=== PATIENT | female | born 1955 | race Caucasian/White ===

== ENCOUNTER 2018-04-22 08:48 | Observation (INO) ==
[2018-04-22] MEDS ORDERED: Ondansetron 4 MG/2 ML VIAL IVP ONE ×2 (09:05→16:17)
[2018-04-22] MEDS ORDERED: *HR* FentaNYL (PF) 100 MCG/2 ML VIAL IVP ONE ×2 (09:05→11:09)
[2018-04-22] MEDS ORDERED: 0.9 % Sodium Chloride 1,000 ML IVC ONE (09:05)
[2018-04-22 09:12] LABS: Bilirubin,Urine Negative (Negative); Blood,Urine Large (Negative); Color,Urine Yellow (Yellow); Glucose,Urine (UA) Normal (Normal); Ketones,Urine 15 mg/dL (Negative); Leukocyte Esterase,Urine Negative (Negative); Nitrite,Urine Negative (Negative); PH,Urine 5.5 pH Units (5.0-8.0); Protein,Urine 100 mg/dL (Neg-Trace); Specific Gravity,Urine 1.026 (1.010-1.025); Urobilinogen,Urine Normal (Normal)
[2018-04-22 09:15] LABS: Bacteria,Urine None Seen per hpf (None-Few); Hyaline Casts,Urine Moderate per lpf (None-Few); RBC,Urine TNTC per hpf (0-3); Squamous Epithelial Cell,Urine Many per lpf (None-Few)
--- NOTE | 2018-04-22 09:15 | Emergency Department Note ---
Disposition Clinical Impression: KIANNA (acute kidney injury) Urolithiasis Qualifiers: Urinary calculus location: ureter Qualified Code(s): N20.1 - Calculus of ureter Hydronephrosis Qualifiers: Hydronephrosis type: unspecified Qualified Code(s): N13.30 - Unspecified hydronephrosis Disposition: Admitted As Inpatient Condition: Undetermined Referrals: Quinn Daley MD [Primary Care Provider] - Forms: ED Satisfaction Letter, Work/School Release Time of Disposition: 11:36 Abdominal Pain HPI - General Chief Complaint: ED Abdominal Pain Stated Complaint: N/V/D, R flank pain Time Seen by Provider: 04/22/18 09:01 Source: patient Mode of arrival: ambulatory Limitations: no limitations Nursing Notes Reviewed: Yes Vital Signs Reviewed: Yes - History of Present Illness HPI Narrative: 62-year-old female with history of kidney stones arrives to the emergency department with right flank pain over the course the past 4 days as well as some nausea and vomiting and diarrhea. The patient drives her diarrhea as non- bloody and watery. The patient has some associated right flank pain. The patient states this, feels like her previous kidney stones but also states that she has had not had a kidney stone in the past 25 years. She denies any other complaints at this time other than feeling dehydrated. Patient denies any fevers, but does admit to chills. She denies any chest pain, difficulty in breathing, vaginal discharge. Pain Scale: 5 - Related Data Previous Rx's Medication Instructions Recorded Chlorhexidine Rinse 15 ml MM BID #150 mouthwash 09/02/15 Loratadine [Claritin] 10 mg PO DAILY #30 tablet 09/02/15 Pseudoeph/Dm/Guaifen/Acetamin 1 each PO BID 15 Days tablet 09/02/15 [Duraflu 742-00-896-60 mg Tab] Allergies Allergy/AdvReac Type Severity Reaction Status Date / Time clindamycin Allergy Diarrhea Verified 09/02/15 19:04 Penicillins Allergy Rash Verified 09/02/15 19:04 All systems ED: reviewed and negative except as stated. Constitutional: Reports: chills, weakness. Denies: fever ENT ED: Denies: dysphagia Cardiovascular: Denies: chest pain Respiratory: Denies: dyspnea Gastrointestinal: Reports: abdominal pain, nausea, vomiting, diarrhea. Denies: constipation, hematemesis, melena, hematochezia Genitourinary: Reports: dysuria. Denies: urgency, hematuria Musculoskeletal: Reports: back pain. Denies: neck pain, arthralgia, myalgia Integumentary: Denies: rash Abdominal Pain PMH - Past Medical History Medical history: Reports: kidney stones Female Surgical History: Reports: appendectomy, cholecystectomy Psychiatric history: Reports: no psych history - Social History Smoking status: Never smoker Alcohol use: Reports: none Drug use: Reports: none Physical Exam - General Limitations: no limitations General appearance: alert, in no apparent distress - Head Head exam: atraumatic, normocephalic, normal inspection - Eye Eye exam: Present: normal appearance, PERRL, EOMI - ENT ENT exam: normal exam, normal oropharynx, mucous membranes dry - Neck Neck exam: Present: normal inspection, full ROM, trachea midline - Chest Chest inspection: Present: normal inspection - Respiratory Respiratory exam: Present: normal lung sounds bilaterally - Cardiovascular Cardiovascular exam: Present: regular rate, normal rhythm, normal heart sounds - Abdominal Exam Abdominal exam: Present: soft, tenderness (Right flank pain). Absent: distention, guarding, rebound, rigidity, pulsatile mass, hernia - Extremities Exam Extremities exam: Present: normal inspection, full ROM. Absent: tenderness, pedal edema - Neurological Exam Neurological exam: Present: alert, oriented X3 - Skin Skin exam: Present: warm, dry, intact, normal color Course Vital Signs Temperature 98.0 F 04/22/18 08:52 Pulse Rate 75 04/22/18 08:52 Respiratory Rate 16 04/22/18 08:52 Blood Pressure 133/89 04/22/18 08:52 O2 Sat by Pulse Oximetry 97 04/22/18 08:52 Temperature 98.0 F 04/22/18 08:52 Pulse Rate 75 04/22/18 08:52 Respiratory Rate 16 04/22/18 08:52 Blood Pressure 133/89 04/22/18 08:52 O2 Sat by Pulse Oximetry 97 04/22/18 08:52 Oxygen Delivery Oxygen Delivery Room Air Abdominal Pain - MDM Narrative Medical decision making narrative: Patient's workup in the emergency department demonstrates a mildly elevated BMP from baseline. The patient has no signs of urinary tract infection but findings consistent with hydronephrosis and hydroureter on CT scan. Patient is a large stone at the UVJ. She is been experiencing a large amount of nausea this poorly controlled as well as pain that is well-controlled here in the emergency department. Given the patient's poorly controlled pain and nausea combined with the patient's moderate to severe hydronephrosis on the right side , the patient will be admitted to the hospital under urology service, accepted by Dr. Ventura. The patient was made aware and agrees to plan. - Lab Data Lab results reviewed: Yes I reviewed the patient's lab results. Result diagrams: 04/22/18 09:13 04/22/18 09:13 Lab Results 04/22/18 04/22/18 04/22/18 Range/Units 09:00 09:13 09:13 WBC 11.0 (4.3-11.1) K/mcL RBC 5.67 H (3.82-4.97) M/mcL Hgb 17.8 H (11.5-15.4) g/dL Hct 50.4 H (35.3-44.9) % MCV 88.9 (83.0-100.0) fL MCH 31.4 (28.0-33.3) pg MCHC 35.3 (31.6-35.5) g/dL RDW 12.4 (11.5-14.5) % Plt Count 256 (140-400) K/mcL MPV 10.5 (9.4-12.4) fL Immature Gran % 0.6 (0-4) % Seg Neutrophils % 85.1 % Lymphocytes % 6.8 % Monocytes % 6.9 % Eosinophils % 0.1 % Basophils % 0.5 % Neutrophils # 9.4 H (1.6-8.9) K/mcL Lymphocytes # 0.8 (0.6-4.6) K/mcL Monocytes # 0.8 (0.0-1.3) K/mcL Eosinophils # 0.0 (0.0-0.6) K/mcL Basophils # 0.1 (0.0-0.2) K/mcL Sodium 138 (136-145) mEq/L Potassium 4.0 (3.5-5.1) mEq/L Chloride 106 (98-107) mEq/L Carbon Dioxide 22 L (23-29) mEq/L BUN 22 (8-23) mg/dL Creatinine 1.55 H (0.60-1.20) mg/dL Est GFR ( Amer) 41 L (> 60) Est GFR (Non-Af Amer) 34 L (> 60) BUN/Creatinine Ratio 14 (6-26) Glucose 161 H (70-105) mg/dL Calculated Osmolality 293 (280-300) Calcium 9.6 (8.6-10.3) mg/dL Total Bilirubin 0.7 (0.3-1.0) mg/dL Direct Bilirubin 0.1 (0.0-0.2) mg/dL Indirect Bilirubin 0.6 (0.0-1.2) mg/dL AST 24 (13-39) Units/L ALT 27 (7-52) Units/L Alkaline Phosphatase 84 (34-104) Units/L Serum Total Protein 7.5 (6.4-8.9) g/dL Albumin 4.6 (3.5-5.7) g/dL Globulin 2.9 (2.4-3.5) g/dL Albumin/Globulin Ratio 1.6 (1.1-2.2) Urine Color Yellow (Yellow) Urine Clarity Slightly Hazy (Clear) Urine pH 5.5 (5.0-8.0) pH Units Ur Specific [place] 1.026 H (1.010-1.025) Urine Protein 100 H (Neg-Trace) mg/dL Urine Glucose (UA) Normal (Normal) mg/dL Urine Ketones 15 H (Negative) mg/dL Urine Blood Large H (Negative) Urine Nitrite Negative (Negative) Urine Bilirubin Negative (Negative) Urine Urobilinogen Normal (Normal) mg/dL Ur Leukocyte Esterase Negative (Negative) Urine Microscopic RBC TNTC H (0-3) per hpf Urine Microscopic WBC 5-15 H (0-3) per hpf Ur Squamous Epith Cells Many H (None-Few) per lpf Urine Bacteria None Seen (None-Few) per hpf Hyaline Casts Moderate H (None-Few) per lpf Ur Culture Indicated? NO (NO) - Radiology Data Radiology results reviewed: Yes I reviewed the patient's radiology results. - EKG Data EKG attestation: Yes I reviewed and interpreted this EKG. EKG results narrative: Heart rate 65 beats for minute. Normal sinus rhythm. No ST elevation or ST depression noted. No acute changes noted.
[2018-04-22 09:17] LABS: Clarity,Urine Slightly Hazy (Clear)
[2018-04-22 09:29] LABS: Basophils # 0.1 K/mcL (0.0-0.2); Basophils % 0.5 %; Eosinophils % 0.1 %; Hematocrit 50.4 % (35.3-44.9); Hemoglobin 17.8 g/dL (11.5-15.4); Immature Granulocytes % 0.6 % (0-4); Lymphocytes # 0.8 K/mcL (0.6-4.6); Lymphocytes % 6.8 %; Mean Corpuscular HGB Conc 35.3 g/dL (31.6-35.5); Mean Corpuscular Hemoglobin 31.4 pg (28.0-33.3); Mean Corpuscular Volume 88.9 fL (83.0-100.0); Mean Platelet Volume 10.5 fL (9.4-12.4); Monocytes # 0.8 K/mcL (0.0-1.3); Monocytes % 6.9 %; Neutrophils # 9.4 K/mcL (1.6-8.9); Platelet Count 256 K/mcL (140-400); Red Blood Count 5.67 M/mcL (3.82-4.97); Red Cell Distribution Width 12.4 % (11.5-14.5); Segmented Neutrophils % 85.1 %
[2018-04-22 09:47] LABS: Albumin 4.6 g/dL (3.5-5.7); Albumin/Globulin Ratio 1.6 (1.1-2.2); Bilirubin,Direct 0.1 mg/dL (0.0-0.2); Bilirubin,Indirect 0.6 mg/dL (0.0-1.2); Bilirubin,Total 0.7 mg/dL (0.3-1.0); Calcium 9.6 mg/dL (8.6-10.3); Globulin 2.9 g/dL (2.4-3.5); Total Protein 7.5 g/dL (6.4-8.9)
[2018-04-22] MEDS ORDERED: Acetaminophen 325 MG TABLET PO PRN ×2 (11:57→17:12)
[2018-04-22] MEDS ORDERED: OXYCODONE Oral CONC 10 MG/0.5 ML ORAL.SYG SL PRN ×3 (11:57→17:12)
[2018-04-22] MEDS ORDERED: *HR* HYDROcodone/Acet 5/325 mg TABLET PO PRN (11:57)
[2018-04-22] MEDS ORDERED: Ibuprofen 400 MG TABLET PO PRN (11:57)
[2018-04-22] MEDS ORDERED: Ondansetron 4 MG/2 ML VIAL IVP PRN ×2 (11:57→17:12)
[2018-04-22] MEDS ORDERED: *HR* OxyCODONE Immed Rel 5 MG TABLET PO PRN ×3 (11:57→17:12)
[2018-04-22] MEDS ORDERED: Naloxone 0.4 MG/ML INJ IVP PRN ×2 (11:57→17:12)
[2018-04-22] MEDS ORDERED: 0.9 % Sodium Chloride 1,000 ML IVC SCH ×2 (12:00→17:12)
--- NOTE | 2018-04-22 12:01 | Urology History & Physical ---
Date of Encounter: 04/22/18 Time of Encounter: 11:59 Assessment and Plan (1) Urolithiasis Current Visit: Yes Status: Acute 62-year-old woman with a history of a distal right ureteral stone and flank pain. She wishes to have the stone removed. I recommend proceeding with a right ureteroscopy, laser lithotripsy, and stent placement. She was informed of the risks of the procedure including but not limited to bleeding, infection, injury to other structures, need for further procedures, stent irritation, incomplete fragmentation, ureteral perforation, need for nephrostomy tube, need for open repair, risks unforeseen, and the risk of anesthesia. She is willing to proceed. Qualifiers: Urinary calculus location: ureter Qualified Code(s): N20.1 - Calculus of ureter History of Present Illness Chief complaint: Right flank pain, nausea HPI: Ms. Winn is a 62 year old female who presents with a one-day history of right flank pain. She noted nausea yesterday and had a lot of emesis as well. The pain began this morning at midnight. It is located in the right flank and radiates to the right groin. The pain has been sharp and severe. She came to the emergency department. The staff ordered a CT scan which showed a distal right ureteral stone causing right hydronephrosis. She had a mild elevation of her creatinine. She has been afebrile. She reports a history of nephrolithiasis. She previously was able to pass stones. The stone is causing her more discomfort. She wishes to have it removed. Past Med Surg Social Fam HX - Past Medical History Medical history: kidney stones Additional medical history: on adipex Psychiatric history: no psych history - Social History Smoking Status: Never smoker Smokeless Tobacco Status: No Alcohol use: none Drug use: none - Family History Father Hx Family Genitourinary Disorders: Yes (Nephrolithiasis) Medications and Allergies Omeprazole [PriLOSEC] 20 mg PO DAILY 04/22/18 [History] 3 Allergy/AdvReac Type Severity Reaction Status Date / Time clindamycin Allergy Diarrhea Verified 09/02/15 19:04 Penicillins Allergy Rash Verified 09/02/15 19:04 Review of Systems - Constitutional no chills, no fever(s) - EENT Nose, mouth and throat: no dizziness - Cardiovascular no chest pain - Respiratory no dyspnea - Gastrointestinal nausea, vomiting - Genitourinary Genitourinary: flank pain, no hematuria - Musculoskeletal no back pain - Integumentary no erythema, no rash - Neurological no weakness - Psychiatric no suicidal ideation - Hematologic/Lymphatic no easy bleeding - Allergic/Immunologic no wheezing Exam Initial Vital Signs Temp Pulse Resp BP Pulse Ox 98.0 F 75 16 133/89 97 04/22/18 08:52 04/22/18 08:52 04/22/18 08:52 04/22/18 08:52 04/22/18 08:52 - General physical appearance Present: well developed, well nourished, no distress - Eyes Absent: icteric - ENT Present: normal nares - Neck Present: trachea midline - Respiratory Present: normal respiratory effort - Cardiovascular Cardiovascular exam IM: RRR - Abdomen Abdomen: Present: soft - Integumentary Present: no rash - Neurologic Present: normal coordination - Musculoskeletal Present: other (grossly normal) Urology Results - Labs 04/22/18 09:13 04/22/18 09:13 Abnormal lab results RBC 5.67 M/mcL (3.82-4.97) H 04/22/18 09:13 Hgb 17.8 g/dL (11.5-15.4) H 04/22/18 09:13 Hct 50.4 % (35.3-44.9) H 04/22/18 09:13 Neutrophils # 9.4 K/mcL (1.6-8.9) H 04/22/18 09:13 Carbon Dioxide 22 mEq/L (23-29) L 04/22/18 09:13 Creatinine 1.55 mg/dL (0.60-1.20) H 04/22/18 09:13 Est GFR ( Amer) 41 (> 60) L 04/22/18 09:13 Est GFR (Non-Af Amer) 34 (> 60) L 04/22/18 09:13 Glucose 161 mg/dL (70-105) H 04/22/18 09:13 Ur Specific [place] 1.026 (1.010-1.025) H 04/22/18 09:00 Urine Protein 100 mg/dL (Neg-Trace) H 04/22/18 09:00 Urine Ketones 15 mg/dL (Negative) H 04/22/18 09:00 Urine Blood Large (Negative) H 04/22/18 09:00 Urine Microscopic RBC TNTC per hpf (0-3) H 04/22/18 09:00 Urine Microscopic WBC 5-15 per hpf (0-3) H 04/22/18 09:00 Ur Squamous Epith Cells Many per lpf (None-Few) H 04/22/18 09:00 Hyaline Casts Moderate per lpf (None-Few) H 04/22/18 09:00 All other labs normal. - Imaging CT scan - abdomen: report reviewed, image reviewed CT scan - pelvis: report reviewed, image reviewed
[2018-04-22] MEDS ORDERED: Ketorolac 15 MG/ML VIAL IVP ONE (14:37)
--- NOTE | 2018-04-22 15:25 | Anesthesia Evaluation PreOp ---
Date of Encounter: 04/22/18 Time of Encounter: 15:23 - Past History Planned Operation: Right Ureteral stone extraction Cardiac History: Denies any Significant Hx Pulmonary History: Denies Any Significant HX REFRIGERATION TECHNICIAN History: Denies Any Significant HX Other Medical History: Denies Any Significant HX Anesthesia History: No Prior Anesthetic Complications : No Alcohol Use: none Drug use: none Medications and Allergies Omeprazole [PriLOSEC] 20 mg PO DAILY 04/22/18 [History] 3 Allergy/AdvReac Type Severity Reaction Status Date / Time clindamycin Allergy Diarrhea Verified 09/02/15 19:04 Penicillins Allergy Rash Verified 09/02/15 19:04 - Meds/Allergy Pre-op Review Medications Reviewed: Yes Allergies Reviewed: Yes Beta Blockers on Current Med List: No Anesthesia Results - Labs 04/22/18 09:13 04/22/18 09:13 Echocardiogram Name: Siobhan Winn Date of Study: 01/23/2017 Indications: bicuspid aortic valve Impressions: LVEF 55-60%. Normal LV chamber size, wall thickness and function. Mild left ventricular diastolic dysfunction. Normal right ventricular structure and function. Trileaflet aortic valve with normal function. Unable to estimate RVSP due to lack of adequate TR jet. No significant valvular dysfunction. Anesthesia Exam Vital Signs/O2 Sat, Most Current Temp Pulse Resp BP Pulse Ox 98.4 F 62 14 119/72 94 04/22/18 15:06 04/22/18 15:06 04/22/18 15:06 04/22/18 15:06 04/22/18 15:06 NPO (# of Hours): > 8 hrs Pain Scale: 0 Pain Scale Used: Numeric (1 - 10) - HEENT Pupil (Motor): Pupils equal, EOMI Mallampati: II Teeth: Normal Oral Opening: Greater than 3 - REFRIGERATION TECHNICIAN LOC: Oriented REFRIGERATION TECHNICIAN Motor: Normal RUE, Normal LUE, Normal RLE, Normal LLE, Normal Face REFRIGERATION TECHNICIAN Sensory: Normal: RUE, LUE, RLE, LLE, Face - Cardiac Rhythm: Regular Murmur: None JVD: No Carotid Bruit: No - Pulmonary Breath Sounds: bilateral Clear Respiratory Effort: Symmetrical - Additional Findings on adipex Anesthesia Assess/Plan ASA Score: 2 Modified Liane Scale for Level of Consciousness: Cooperative, oriented, and tranquil Anesthetic Plan: General Autologous Blood: Yes Monitoring Plan: Standard Monitors Recovery Plan: PACU
[2018-04-22] MEDS ORDERED: Dexamethasone 4 MG/ML VIAL ONE (15:32)
[2018-04-22] MEDS ORDERED: Ondansetron 4 MG/2 ML VIAL ONE (15:32)
[2018-04-22] MEDS ORDERED: *HR* FentaNYL (PF) 100 MCG/2 ML VIAL ONE (15:32)
[2018-04-22] MEDS ORDERED: *HR* Midazolam HCl 2 MG/2 ML VIAL ONE (15:32)
[2018-04-22] MEDS ORDERED: *HR* Propofol 200 MG/20 ML VIAL IVP ONE (15:32)
[2018-04-22] MEDS ORDERED: Lidocaine -MPF 2% 2 ML VIAL ONE (15:32)
[2018-04-22] MEDS ORDERED: Isovue-300 50 ML VIAL IVP ONE (15:43)
[2018-04-22] MEDS ORDERED: *HR* Labetalol 100 MG/20 ML MDV IVP PRN (16:17)
[2018-04-22] MEDS ORDERED: *HR* Promethazine 25 MG/ML VIAL IVP PRN (16:17)
[2018-04-22] MEDS ORDERED: MORPHINE SUL Oral CONC 10 MG/0.5 ML ORAL.SYG SL PRN (16:17)
--- NOTE | 2018-04-22 16:29 | Operative Note ---
Date of procedure: 04/22/18 Pre-op diagnosis: Right ureteral stone Post-op diagnosis: same Procedure: Right ureteroscopy, basket stone extraction, and stent placement Implants: 6-German by 24 cm double-J stent Complications: None Anesthesia: MESFINA Surgeon: Kehinde Ventura Was there an expanded duty dental assistant present: No Estimated blood loss (cc): 0 Specimen: right ureteral stone Condition: stable Disposition: PACU Procedure in Detail: Indications: Siobhan is a 62-year-old woman who has a history of right flank pain. A CT scan showed a distal right ureteral stone. She has tried to pass the stone on her own but has not been able to do so. She is still having flank pain. She wishes to have the stone removed. Therefore, she elected undergo a right ureteroscopy, laser lithotripsy, basket stone extraction, and ureteral stent placement. She is aware of the risks of the procedure including but not limited to bleeding, infection, injury to other structures, need for further procedures, need for stent, stent irritation, need for nephrostomy tube, incomplete treatment, need for open repair, risks unforeseen, and the risk of anesthesia. She is willing to proceed. Procedure: After informed consent was obtained the patient was brought back to the operating room and placed in supine position. A time out was performed. General anesthesia was administered and an LMA was placed. She was then placed in the lithotomy position. She was prepped and draped in the usual sterile fashion. Cystoscopy was performed. The anterior urethra was normal. There was no evidence of bladder tumors. The ureteral orifices were in the normal orthotopic position. The Zip wire was placed in the right ureteral orifice and brought into the kidney under fluoroscopic guidance. I then advanced the semirigid ureteroscope into the ureter. The stone was basket extracted. A 6 German by 24cm JJ stent was then placed with good curl seen in the kidney and the bladder. The dangle string was left intact. The string was tucked into the vagina and will be used to remove the stent at a later date. The patient was then awakened from general anesthesia and brought to recovery room in good condition. All sponge, needle, and instrument counts were correct.
--- NOTE | 2018-04-22 16:32 | Discharge Summary ---
Orders not resulted at time of discharge: Pending orders 04/22/18 16:21 Surgical Pathology [PTH] Routine Date of Encounter: 04/22/18 Time of Encounter: 16:30 - Discharge Diagnosis (1) Urolithiasis Priority: Primary Status: Acute Qualifiers: Urinary calculus location: ureter Qualified Code(s): N20.1 - Calculus of ureter - Hospital Course Hospital course: Ms. Winn is a 62 year old female who presented with nausea and right flank pain. She came to the emergency department and a CT scan showed a distal right ureteral stone. She elected to have the stone removed. On 04/22/2018 she underwent a right ureteroscopy with basket stone extraction. She tolerated the procedure well and was discharged home once recovered. - Time Spent with Patient Total time spent providing and/or coordinating discharge services: Less than 30 minutes - Discharge Medications Prescriptions: Ondansetron HCl [Zofran] 4 mg PO Q8HR PRN #20 tab PRN Reason: Nausea Docusate [Colace] 100 mg PO BID #60 capsule Oxycodone HCl/Acetaminophen [Percocet 5-325 mg Tablet] 1 each PO Q6H PRN 4 Days #15 tablet PRN Reason: Pain Home Medications: Docusate [Colace] 100 mg PO BID #60 capsule 04/22/18 [Rx] Omeprazole [PriLOSEC] 20 mg PO DAILY 04/22/18 [History] Ondansetron HCl [Zofran] 4 mg PO Q8HR PRN #20 tab 04/22/18 [Rx] Oxycodone HCl/Acetaminophen [Percocet 5-325 mg Tablet] 1 each PO Q6H PRN 4 Days #15 tablet 04/22/18 [Rx] Allergies/Adverse Reactions: 3 Allergy/AdvReac Type Severity Reaction Status Date / Time clindamycin Allergy Diarrhea Verified 09/02/15 19:04 Penicillins Allergy Rash Verified 09/02/15 19:04 Date of admission: 04/22/18 11:49 Primary care physician: Quinn Daley MD Discharging clinician: Kehinde Ventura Anticipated date of discharge: 04/22/18 Exam Initial Vital Signs Temp Pulse Resp BP Pulse Ox 98.0 F 75 16 133/89 97 04/22/18 08:52 04/22/18 08:52 08/07/18 08:52 04/22/18 08:52 04/22/18 08:52 - General physical appearance Present: well developed, well nourished, no distress - Eyes Absent: icteric - ENT Present: normal nares - Neck Present: trachea midline - Respiratory Present: normal respiratory effort - Cardiovascular Cardiovascular exam IM: RRR - Abdomen Abdomen: Present: soft - Integumentary Present: no rash - Neurologic Present: normal coordination - Musculoskeletal Present: normal gait - Patient Status Disposition: Home, Self-Care Condition: Good Functional capacity at discharge: independent ambulation Overall status at discharge: patient is progressing back to baseline - Discharge Instructions Follow Up With: Kehinde Ventura MD [Partnered Physician] - (3-4 weeks.) Additional Instructions: 1. The patient can remove her stent in 3 days by pulling on the string 2. She should expect to feel flank pain with voiding. 3. The patient should call for any fevers, chills, nausea, emesis, or uncontrolled pain. 4. Please provide a work excuse if necessary for up to 1 week off. 5. She should follow up in 3-4 weeks. - Diet and Activity Activity: increase activity as tolerated Diet: advance to your usual diet - VTE Reasons for not Prescribing Prophylaxis: Treatment not Indicated - Low risk for VTE
--- NOTE | 2018-04-22 16:54 | Anesthesia Evaluation Post Op ---
Date of Encounter: 04/22/18 Time of Encounter: 16:53 - Vital Signs Vital Signs: Vital Signs/O2 Sat, Most Current Temp Pulse Resp BP Pulse Ox 98.6 F 70 16 114/70 93 04/22/18 16:51 04/22/18 16:51 04/22/18 16:51 04/22/18 16:51 04/22/18 16:51 - Lungs Lungs: Clear Ascult./Percussion - Airway Airway: Non-obstructed - Cardiovascular Regular Rate - Mental Status Mental Status: Alert & Oriented, Answers Appropriately - Pain Pain Scale: 0 Pain Scale used: Numeric (1 - 10) - Nausea Vomiting Nausea Vomiting: Not Present - Hydration Hydration: NPO, Has not voided - Discharge PostOp Status: Transfer Patient to floor
[2018-04-22 21:09] VITALS: BP 136/90
--- NOTE | 2018-04-23 16:44 | Electrocardiograph Report ---
[place] [id number] Test Date: 2018-04-22 Pat Name: Siobhan Winn Department: 103 Room: 3A33 Gender: F Waitress: TMR : [id number] Requested By: Barney Grijalva Order Number: [id number] Reading MD: Ez Barnes Measurements Intervals [place] Rate: 65 P: 54 TX: 148 QRS: 40 QRSD: 97 T: 23 QT: 426 QTc: 437 Interpretive Statements SINUS RHYTHM Electronically Signed On 04-23-2018 16:43:03 EDT by Ez Barnes
[2018-04-27 09:26] LABS: Calculi Mass 39 mg
== END 2018-04-22 21:19 | disposition home or self-care (01) ==
LOC: 3ANU 08:48 → EMEROO 08:48 → 3ANU 12:27
PROVIDERS: ADMIT Urology; ATTEND Urology